=== PATIENT | female | born 1995 | race Caucasian/White ===

== ENCOUNTER 2017-08-05 15:53 | Outpatient (CLI) | payer MEDICAID, OTHER ==
[~2017-08-05 15:53] MED LIST: IBUP-1222 PO; OXYC-302 PO; SENN-1 PO
== END 2017-08-05 17:15 | disposition home or self-care (01) ==
LOC: LDOP 15:53
PROVIDERS: ATTEND Obstetrics & Gynecology
DX: O9A.219 Injury, poisoning and certain other consequences of external causes complicating pregnancy, unspecified trimester (principal); V89.2XXA Person injured in unspecified motor-vehicle accident, traffic, initial encounter; Z3A.00 Weeks of gestation of pregnancy not specified
CPT/HCPCS: 59025; 99211; G0463

== ENCOUNTER 2017-09-02 10:58 | Outpatient (CLI) | payer OTHER ==
[~2017-09-02] VITALS: Ht 175.3 cm; Wt 109.1 kg
[2017-09-02 11:11] VITALS: BP 134/66
== END 2017-09-02 12:17 | disposition home or self-care (01) ==
LOC: LDOP 10:58
PROVIDERS: ATTEND Obstetrics & Gynecology
DX: O26.893 Other specified pregnancy related conditions, third trimester (principal); O99.283 Endocrine, nutritional and metabolic diseases complicating pregnancy, third trimester; E07.9 Disorder of thyroid, unspecified; R10.9 Unspecified abdominal pain; Z3A.00 Weeks of gestation of pregnancy not specified
CPT/HCPCS: 59025; 99211; G0463

== ENCOUNTER 2017-09-07 16:53 | Outpatient (CLI) | payer OTHER ==
[2017-09-07] MEDS ORDERED: ZOLPIDEM 10MG TABLET ONE (19:07)
[2017-09-07] MEDS ORDERED: ZOLPIDEM 10MG TABLET PO ONE (19:30)
== END 2017-09-07 19:10 | disposition home or self-care (01) ==
LOC: LDOP 16:53
PROVIDERS: ATTEND Obstetrics & Gynecology
DX: O26.893 Other specified pregnancy related conditions, third trimester (principal); R10.9 Unspecified abdominal pain; Z3A.38 38 weeks gestation of pregnancy
CPT/HCPCS: 59025; 99211; G0463

== ENCOUNTER 2017-09-15 07:53 | Inpatient (IN) | payer OTHER ==
[~2017-09-15] VITALS: Ht 175.3 cm; Wt 112.0 kg
[2017-09-15] MEDS ORDERED: NEWBORN KIT ONE (08:01)
[2017-09-15] MEDS ORDERED: OXYTOCIN 30U/ 0.9% NaCL 500ML 500 ML IV ONE (08:21)
[2017-09-15] MEDS ORDERED: D5%-LACTATED RINGERS 1,000 ML IV SCH (08:21)
[2017-09-15] MEDS ORDERED: OXYTOCIN 30U/ 0.9% NaCL 500ML 500 ML IV PRN (08:21)
[2017-09-15] MEDS ORDERED: FENTANYL PF 100 MCG/2ML IVPush PRN (08:30)
[2017-09-15] MEDS ORDERED: TERBUTALINE 1 MG/ML, 1ML IVPush PRN (08:30)
[2017-09-15] MEDS ORDERED: MISOPROSTOL 25 MCG TABLET VG PRN (08:30)
[2017-09-15 08:32] VITALS: BP 131/75
[2017-09-15 08:48] LABS: HEMATOCRIT 36.9 % (34.6-47.8); HEMOGLOBIN 11.9 g/dL (11.7-16.4); WHITE BLOOD COUNT 9.7 x10^3/uL (3.4-10)
[2017-09-15 09:16] LABS: HIV 1&2 ANTIBODY SCREEN Nonreactive (Nonreactive); HIV-1 p24 ANTIGEN Nonreactive (Nonreactive)
[2017-09-15] MEDS: LACTATED RINGERS 1,000 ML IV SCH ×5 (09:38→21:14)
[2017-09-15] MEDS ORDERED: OXYTOCIN 30U/ 0.9% NaCL 500ML 500 ML ONE (09:52)
[2017-09-15] MEDS ORDERED: MISOPROSTOL 25 MCG TABLET ONE (09:52)
[2017-09-15] MEDS ORDERED: FENTANYL PF 100 MCG/2ML ONE (16:12)
[2017-09-15] MEDS ORDERED: BUPIVACAINE 0.25% ONE (16:13)
[2017-09-15] MEDS ORDERED: FENTANYL/BUPIV./NS/PF 250 ML EPIDCONT ONE (16:13)
[2017-09-15] MEDS ORDERED: LACTATED RINGERS 1,000 ML IV SCH (17:20)
[2017-09-15] MEDS ORDERED: FENTANYL/BUPIV./NS/PF 250 ML EPIDCONT SCH (17:20)
[2017-09-15] MEDS ORDERED: EPHEDRINE 50 MG/ML, 1ML IVPush PRN (17:30)
[2017-09-15] MEDS ORDERED: LACTATED RINGERS 1,000 ML IVBOLUS PRN (17:30)
[2017-09-15] MEDS ORDERED: ONDANSETRON 2MG/ML, 2ML IVPush PRN (17:30)
[2017-09-15] MEDS ORDERED: CALCIUM CARBONATE 500 MG TAB.CHEW ONE ×2 (20:06→20:07)
[2017-09-15] MEDS ORDERED: CALCIUM CARBONATE 500 MG TAB.CHEW PO PRN ×2 (20:30)
[2017-09-15] MEDS ORDERED: PNV11TAB5 PO (22:08)
[2017-09-15] MEDS ORDERED: METH10TA6 PO (22:08)
[2017-09-16] MEDS ORDERED: OXYTOCIN 30U/ 0.9% NaCL 500ML 500 ML ONE (03:24)
[2017-09-16] MEDS: OXYTOCIN 30U/ 0.9% NaCL 500ML 500 ML IV SCH ×3 (03:27→23:12)
[2017-09-16] MEDS ORDERED: OXYcodone/APAP 5/325MG TABLET PO PRN (03:30)
[2017-09-16] MEDS ORDERED: OXYTOCIN 10 UNITS/ML, 1ML IM PRN (03:30)
[2017-09-16] MEDS ORDERED: ONDANSETRON 2MG/ML, 2ML IV PRN (03:30)
[2017-09-16] MEDS ORDERED: METHYLERGONOVINE 0.2 MG/ML IM PRN (03:30)
[2017-09-16] MEDS ORDERED: ACETAMINOPHEN 325 MG TABLET PO PRN (03:30)
[2017-09-16] MEDS ORDERED: MISOPROSTOL 200 MCG TABLET PR PRN (03:30)
[2017-09-16] MEDS ORDERED: OXYcodone/APAP 5/325MG TABLET ONE (03:41)
[2017-09-16] MEDS ORDERED: IBUPROFEN 600 MG TABLET ONE (03:41)
[2017-09-16] MEDS: IBUPROFEN 600 MG TABLET PO PRN ×3 (03:43→16:26)
[2017-09-16] MEDS: OXYcodone/APAP 5/325MG TABLET PO PRN ×4 (03:43→16:26)
[2017-09-16 05:05] VITALS: BP 129/72
[2017-09-16 07:15] VITALS: BP 117/66
[2017-09-16] MEDS: PRENATAL VIT/IRON/FA 1 EACH TABLET PO SCH (08:34)
[2017-09-16] MEDS: LABETALOL 100 MG TABLET PO SCH ×2 (08:35→18:29)
[2017-09-16 11:05] LABS: HEMATOCRIT 32.8 % (34.6-47.8); HEMOGLOBIN 10.7 g/dL (11.7-16.4); WHITE BLOOD COUNT 14.4 x10^3/uL (3.4-10)
[2017-09-16 12:26] VITALS: BP 119/70
[2017-09-16 16:27] VITALS: BP 119/71
[2017-09-16 19:50] VITALS: BP 120/75
[2017-09-17] MEDS: IBUPROFEN 600 MG TABLET PO PRN (00:25)
[2017-09-17] MEDS: OXYcodone/APAP 5/325MG TABLET PO PRN (00:25)
[2017-09-17 00:26] VITALS: BP 113/74
[2017-09-17 07:15] VITALS: BP 119/68
[2017-09-17] MEDS ORDERED: HYDR-3240 PO (08:00)
[2017-09-17] MEDS: PRENATAL VIT/IRON/FA 1 EACH TABLET PO SCH (08:50)
[2017-09-17] MEDS: LABETALOL 100 MG TABLET PO SCH (08:51)
== END 2017-09-17 13:47 | disposition home or self-care (01) | DRG 775 ==
LOC: LDIP 07:53 → 2NW 09-16 05:08
PROVIDERS: ADMIT Obstetrics & Gynecology; ATTEND Obstetrics & Gynecology
PROC: 10E0XZZ Delivery of Products of Conception, External Approach (ICD-10-PCS; principal; 2017-09-16)
PROC: 3E0R3BZ Introduction of Anesthetic Agent into Spinal Canal, Percutaneous Approach (ICD-10-PCS; 2017-09-16)
PROC: 00HU33Z Insertion of Infusion Device into Spinal Canal, Percutaneous Approach (ICD-10-PCS; 2017-09-16)
DX: O16.4 Unspecified maternal hypertension, complicating childbirth (principal); E05.90 Thyrotoxicosis, unspecified without thyrotoxic crisis or storm; O99.284 Endocrine, nutritional and metabolic diseases complicating childbirth; Z37.0 Single live birth; Z3A.39 39 weeks gestation of pregnancy
CPT/HCPCS: 36415; 82803; 85025; 86592; 86703; 86762; 86803; 86850; 86900; 87070; 87075; 87076; 87205; 87340; 87899; 88305; G0435; J2590; J3010; J7120; J7121